=== PATIENT | female | born 1995 | race Caucasian/White ===

== ENCOUNTER 2018-02-18 15:51 | Emergency (ER) | payer SELFPAY, OTHER | END 2018-02-18 20:56 | disposition home or self-care (01) ==

== ENCOUNTER 2018-03-24 05:15 | Day surgery (SDC) | payer OTHER ==
--- NOTE | 2018-03-24 05:32 | EDPHY ---
H & P Stated Complaint: Bleeding post tonsilectomy Source: Patient - Personal History LMP (Females 10-55): 15-21 Days Ago Current Tetanus/Diphtheria Vaccine: Yes Current Tetanus Diphtheria and Acellular Pertussis (TDAP): Yes - Medical/Surgical History Hx Asthma: No Hx Chronic Respiratory Disease: No Hx Diabetes: No Hx Cardiac Disease: No Hx Renal Disease: No Hx Cirrhosis: No Hx Alcoholism: No Hx HIV/AIDS: No Hx Splenectomy or Spleen Trauma: No Other PMH: UTI, BV, Tonsilectomy - Social History Smoking Status: Never smoked Time Seen by Provider: 03/24/18 05:32 HPI/ROS: HPI CHIEF COMPLAINT: Post tonsillectomy bleeding. HISTORY OF PRESENT ILLNESS: This is a very pleasant 22-year-old female she arrives to the emergency room by private vehicle at 5:30 a.m. As she states that she woke up around 4:00 a.m. And noticed that she was bleeding. She just had a tonsillectomy last Monday or 7 days ago. It has been recovering nicely. She denies any fever denies any significant pain. She states she thinks she started bleeding earlier tonight when she brushed her teeth and then spit her toothpaste out. However 4:00 a.m. She noticed increasing bleeding so she decided come the emergency room. Upon arrival here in the emergency room she appears well nontoxic in no acute distress there is no significant bleeding on exam. A posterior pharynx exam shows fresh cauterization ladd, the left tonsillar bed there is some venous blood present but no active bleeding that I can visualize. Will continue to watch her to see if she has further bleeding. If she does I will consult ENT. Past Medical History: No significant medical history Past Surgical History: Tonsillectomy. Social History: Denies drugs alcohol tobacco. Family History: Noncontributory ROS REVIEW OF SYSTEMS: 10 Systems were reviewed and negative with the exception of the elements mentioned in the history of present illness. Exam Constitutional triage nursing summary reviewed, vital signs reviewed, awake/ alert. Eyes normal conjunctivae and sclera, EOMI, PERRLA. HENT posterior pharynx: Tonsillar bed shows fresh cauterization ladd, the left tonsillar bed very minimal venous blood present, no active bleeding that I can visualize no arterial bleeding, otherwise no signs infection, no significant swelling, moist mucus membranes, no epistaxis, neck supple/ no meningismus, no raccoon eyes. Respiratory clear to auscultation bilaterally, normal breath sounds, no respiratory distress, no wheezing. Cardiovascular rate normal, regular rhythm, no murmur, no edema, distal pulses normal. Gastrointestinal soft, non-tender, no rebound, no guarding, normal bowel sounds, no distension, no pulsatile mass. Genitourinary no CVA tenderness. Musculoskeletal no midline vertebral tenderness, full range of motion, no calf swelling, no tenderness of extremities, no meningismus, good pulses, neurovascularly intact. Skin pink, warm, & dry, no rash, skin atraumatic. Neurologic awake, alert and oriented x 3, AAOx3, moves all 4 extremities equally, motor intact, sensory intact, CN II-XII intact, normal cerebellar, normal vision, normal speech. Psychiatric normal mood/affect. Heme/Lymph/Immune no lymphadenopathy. Differential Diagnosis: Includes but is not limited to in a particular order post tonsillectomy bleeding. Medical Decision Making: Plan for this patient close observation in the emergency room. Further bleeding will consult ENT. Re-evaluation: 0707: Patient observed for multiple hours here in the emergency room. On re- examination she does have some mild left-sided tonsillar bed bleeding. She was not bleeding for while and then has recurrence of bleeding. No significant bleeding at this time. I did consult ENT Dr. Zhang, will come and see and evaluate the patient. 7:[address] over [address] Valencia. Dr. Zhang to seen in consultation. ( Memo Lo) Constitutional: Initial Vital Signs Temperature (C) 36.5 C 03/24/18 05:18 Heart Rate 92 03/24/18 05:18 Respiratory Rate 18 03/24/18 05:18 Blood Pressure 155/86 H 03/24/18 05:18 O2 Sat (%) 100 03/24/18 05:18 O2 Delivery Mode Room Air Allergies/Adverse Reactions: No Known Allergies Allergy (Verified 02/18/18 15:53) Home Medications: Medication Instructions Recorded traZODone [traZODONE 100MG (RX)] 100 mg PO HS 11/10/11 Clindamycin HCl [Clindamycin] 300 mg PO TID #30 cap 02/18/18 Clindamycin Top Gel 02/18/18 Erythromycin 02/18/18 Fluconazole 02/18/18 Hydrocodone/APAP 5/325 [[place] 1 - 2 tab PO Q4 PRN #10 tab 02/18/18 5/325 (RX)] Mirtazapine 02/18/18 Nitrofurantoin Macrocrystal 02/18/18 Tinidazole 02/18/18 lamoTRIgine [Lamictal] 02/18/18 methylPREDNISolone [Medrol Dose 1 each PO AD #1 ea 02/18/18 Yonatan] Medical Decision Making ED Course/Re-evaluation: 0 700: Patient is signed out to me at change of shift by Dr. Lo. Patient is awaiting evaluation by ENT. I went saw the patient. She is answering questions appropriately. She sitting in bed comfortable. She has no signs of respiratory distress. The patient was seen by Dr. Torres from ENT. She will take the patient to the operating room. (Erin Shoemaker) Departure - Departure Disposition: To OP Cath/Surgery Clinical Impression: Tonsillar bleed Condition: Good Referrals: TYRONE YU [Primary Care Provider] - As per Instructions Dior Zhang MD [Medical Doctor] - 3-4 days, if not improved
[2018-03-24] MEDS ORDERED: LIDOCAINE 2% 5 ML SDV ONE (07:39)
[2018-03-24] MEDS ORDERED: SUCCINYLCHOLINE CHLORIDE 200 MG/10 ML SYR IVP ONE (07:39)
[2018-03-24] MEDS ORDERED: ROCURONIUM 50 MG/5 ML VIAL ONE (07:39)
[2018-03-24] MEDS ORDERED: PROPOFOL/EMULSION 500 MG/50 ML BOTTLE IV ONE (07:39)
[2018-03-24] MEDS ORDERED: MIDAZOLAM 2 MG/2 ML VIAL ONE (07:39)
[2018-03-24] MEDS ORDERED: fentaNYL 100 MCG/2 ML INJ ONE ×3 (07:39→09:30)
[2018-03-24] MEDS ORDERED: BUPIVACAINE 0.25% 30 ML SDV ONE (07:49)
--- NOTE | 2018-03-24 08:14 | PDANEPAE ---
ANE History of Present Illness tonsillar bleeding ANE Past Medical History - Cardiovascular History Hx Hypertension: No Hx Arrhythmias: No Hx Chest Pain: No Hx Coronary Artery / Peripheral Vascular Disease: No Hx CHF / Valvular Disease: No Hx Palpitations: No - Pulmonary History Hx COPD: No Hx Asthma/Reactive Airway Disease: No Hx Recent Upper Respiratory Infection: No Hx Oxygen in Use at Home: No Hx Sleep Apnea: No - Endocrine History Hx Diabetes: No Hypothyroid: No Hyperthyroid: No Obesity: no - Renal History Hx Renal Disorders: No - Liver History Hx Hepatic Disorders: No - Neurological & Psychiatric Hx Hx Neurological and Psychiatric Disorders: Yes Neurological / Psychiatric History Comment: depression - Cancer History Hx Cancer: No - Congenital Disorder History Hx Congenital Disorders: No - GI History GERD: no Hx Gastrointestinal Disorders: No - Chronic Pain History Chronic Pain: No - Surgical History Prior Surgeries: tonsil 7 days ago ANE Review of Systems Review of systems is: negative Review of Systems: - Exercise capacity Exercise capacity: >=4 METS ANE Patient History - Allergies Allergies/Adverse Reactions: No Known Allergies Allergy (Verified 02/18/18 15:53) - Home Medications Home medications: home medication list seen and reviewed Home Medications: traZODone [traZODONE 100MG (RX)] 100 mg PO HS 11/10/11 [Last Taken Unknown] Clindamycin Top Gel 02/18/18 [Last Taken Unknown] Erythromycin 02/18/18 [Last Taken Unknown] Fluconazole 02/18/18 [Last Taken Unknown] Mirtazapine 02/18/18 [Last Taken Unknown] Nitrofurantoin Macrocrystal 02/18/18 [Last Taken Unknown] Tinidazole 02/18/18 [Last Taken Unknown] lamoTRIgine [Lamictal] 02/18/18 [Last Taken Unknown] - NPO status NPO Since - Liquids (Date): 03/24/18 NPO Since - Liquids (Time): 07:00 NPO Since - Solids (Date): 03/24/18 NPO Since - Solids (Time): 03:00 - Smoking Hx Smoking Status: Never smoked ANE Labs/Vital Signs - Vital Signs Blood Pressure: 135/88 Heart Rate: 69 Respiratory Rate: 16 O2 Sat (%): 100 Height: 177.8 cm Weight: 77.111 kg ANE Physical Exam - Airway Neck exam: FROM Mallampati Score: Class 2 Mouth exam: normal dental/mouth exam - Pulmonary Pulmonary: no respiratory distress, clear to auscultation - Cardiovascular Cardiovascular: regular rate and rhythym, no murmur, rub, or gallop - ASA Status ASA Status: II, E ANE Anesthesia Plan Anesthesia Plan: general endotracheal anesthesia
[2018-03-24] MEDS ORDERED: SUGAMMADEX SODIUM 200 MG/2 ML VIAL IVP ONE (08:40)
--- NOTE | 2018-03-24 09:04 | POSTOPPROG ---
Post Op Note Date of Operation: 03/24/18 Surgeon: Dior Zhang Anesthesiologist: Libia Anesthesia: GET(General Endotracheal) Pre-op Diagnosis: post tonsillectomy bleeding Post-op Diagnosis: same Procedure: control of L tonsil bleed Findings: L superolateral bleeding Inf/Abcess present in the surg proc area at time of surgery?: No EBL: Minimal Total fluids administered: none Complications: none
[2018-03-24] MEDS ORDERED: NALOXONE HCL 0.4 MG/ML INJ IVP PRN (09:06)
[2018-03-24] MEDS ORDERED: PROMETHAZINE HCL 25 MG/ML INJ IVP PRN (09:06)
--- NOTE | 2018-03-24 09:06 | POSTANESTH ---
Post Anesthetic Evaluation Cardiovascular Status: Normal, Stable Respiratory Status: Normal, Stable Level of Consciousness/Mental Status: Can Participate in Eval Pain Control: Adequate, Prn Tx Ordered Nausea/Vomiting Control: Adequate, Prn Tx Ordered Complications Possibly Related to Anesthesia: None Noted
[2018-03-24] MEDS: fentaNYL 100 MCG/2 ML INJ IVP PRN ×4 (09:15→09:51)
[2018-03-24 10:12] VITALS: BP 115/70
--- NOTE | 2018-03-24 13:39 | GOP ---
[f rep st] OPERATIVE REPORT DATE OF OPERATION: 03/24/2018 SURGEON: Dior Zhang MD ANESTHESIA: General. PREOPERATIVE DIAGNOSIS: Postoperative tonsillectomy bleed. POSTOPERATIVE DIAGNOSIS: Postoperative tonsillectomy bleed. PROCEDURE PERFORMED: Control of left tonsil bleeding. SURGEON: Dior Zhang MD. COMPLICATIONS: None. FINDINGS: The patient found to have a bleeding area on the left superior lateral tonsillar fossa. All other areas looked fairly clear. ESTIMATED BLOOD LOSS: Minimal. PREOPERATIVE NOTE: Whitley is a very pleasant 22-year-old girl who had a tonsillectomy done by Dr. Santo about 7 days ago. She notes that she had been doing fine until this morning around 4:00 a.m. She started having some bleeding and could feel it dripping down the back of her throat. It seemed to slow down, but then started again, so she came to the [facility] ER. This continued to be persistent, so I was called for evaluation. It was felt she would benefit from the above. DESCRIPTION OF PROCEDURE: The patient was first seen in the preoperative area where informed consent was obtained. She was then brought back to the operating room where Anesthesia sedated and intubated her. The bed was turned 90 degrees. A shoulder roll was placed. A universal time-out protocol was performed confirming the patient and the procedure. Once this was done, she was prepped and draped in a normal fashion. A Katarina-Lan mouth gag was placed in the oral cavity and then retracted and suspended, giving good visualization of the oropharynx. She did have a significant amount of clot that was suctioned clear from the oropharynx and both tonsillar fossas. When I suctioned on the left tonsillar fossa, she immediately began having fairly brisk bleeding from the superior lateral region of the tonsil, so at this point bipolar cautery was used to cauterize this area. She had a significant amount of scabs that were starting and so these were suctioned clear. She had a lot of granulation tissue within the tonsillar fossas bilaterally, but there was no other significant active bleeding. The adenoid bed area looked like it had not been operated on. The Katarina-Lan mouth gag was then suspended and then retracted for about a minute, releasing any tension. It was re-suspended. The suction cautery was used to cauterize the very small area around the same area that was previously bipolar cauterized and the same thing was done with Katarina- Lan mouth gag releasing it and allowing it to unretract. Once the patient was evaluated again, she had no significant active bleeding from either side. At this point, the oropharynx was suctioned clear. The Katarina-Lan mouth gag was unsuspended, unretracted, and removed. The patient turned back over to Anesthesia where she was awoken and extubated and taken to PACU in stable condition. There were no complications and she tolerated the procedure well. /[id number]/MODL MTDD
--- NOTE | 2018-03-24 13:44 | GCON ---
[f rep st] CONSULTATION CONSULTATION REPORT. DATE OF CONSULTATION: 03/24/2018 CHIEF COMPLAINT: Bleeding. HISTORY OF PRESENT ILLNESS: This is a very pleasant 22-year-old girl who has a history of getting a tonsillectomy 7 days ago. She states around 4:00 am this morning, she started bleeding fairly significantly and she could feel it dripping down the back part of her throat and did not stop and so she came to the ER. The ER had her gargle with a bit of cold ice water, which seemed to slow it down, but then she started bleeding again around 6:45 or 7 and I was called for evaluation. She is in no acute distress. She has currently had a little bit of slowing in her bleeding, but she states it has been off and on since 4:00 am. She has no significant past medical history. She does have a history of recurrent tonsillitis, as well as mono. PAST SURGERY HISTORY: Negative. PAST SURGICAL HISTORY: Tonsillectomy, as well as wisdom tooth removal. ALLERGIES: No known drug allergies. ROS: positive for the above. C/o pain still in operative bed but no significant other complaints PHYSICAL EXAM: GENERAL: She is awake, alert, and in no apparent distress. She is saturating high 90s on room air. Voice is clear. HEENT: Tongue is mobile and midline. Throat shows normal postoperative appearance for 7 days postop from tonsillectomy. She does have what looks like a more recent clot on the left inferior aspect of the tonsil. The posterior oropharynx is clear. Neck shows no masses or lymphadenopathy. Cranial nerves 2-12 are grossly intact. ASSESSMENT AND PLAN: This is a patient who is postop day 7 from tonsillectomy with bleeding. It was felt she needs to go to the OR secondary to continuous bleeding off and on for the past 3 hours. Informed consent was obtained. Discussed this with her. She agrees. I will take her to the OR now. She should be able to go home postoperatively assuming she is feeling okay, as well as follow up with her original surgeon, Dr. Santo. /[id number]/MODL MTDD
== END 2018-03-24 10:41 | disposition home or self-care (01) ==
LOC: FSGY 08:12
PROVIDERS: ATTEND Otolaryngology
PROC: 0W33XZZ Control Bleeding in Oral Cavity and Throat, External Approach (ICD-10-PCS; principal; 2018-03-24 07:42)
DX: K91.841 Postprocedural hemorrhage of a digestive system organ or structure following other procedure (principal)
CPT/HCPCS: J0330; J2250; J2704; J3010